=== PATIENT | female | born 2005 | race Two or more races ===

== ENCOUNTER 2025-01-10 18:40 | Emergency (ER) | payer OTHER, MEDICAID ==
[~2025-01-10] VITALS: Ht 157.5 cm; Wt 76.1 kg
[2025-01-10 19:45] LABS: Hematocrit 46.4 % (36.0-46.0); Hemoglobin 15.7 g/dL (12.2-16.2); Mean Corpuscular Hemoglobin 27.4 pg (28.0-32.0); Mean Corpuscular Volume 80.9 fL (80.0-100.0); Nucleated Red Blood Cells % 0.1 %
[2025-01-10 19:49] LABS: Chloride 104 mmol/L (98-107); Potassium 4.4 mmol/L (3.5-5.1); Sodium 139 mmol/L (136-145)
[2025-01-10 19:50] LABS: Anion Gap 9 (5-15); Calcium 10.0 mg/dL (8.7-10.4); Carbon Dioxide 26 mmol/L (20-31)
--- NOTE | 2025-01-10 19:52 | ED.PDOC ---
GI ASSESSMENT HPI Comments This is a 19 year old female presenting to the ED with chief complaint of abdominal pain. Patient reports that she has been experiencing epigastric abdominal pain with associated nausea and vomiting since last night. Patient relays that her pain was initially a 10/10, but is now a 5/10. Patient denies any diarrhea, fever, chills, chest pain, SOB, hematemesis, or dysuria. Chief Complaint: Abdominal Pain Time Seen by MD: 19:50 Reviewed Notes: Nurses Notes, Medications, Allergies Home Meds Active Scripts Ondansetron Odt 4MG Tab (ZOFRAN PO) 4 Mg Tb, 4 MG PO Q8HP PRN for 7 Days, #21 TAB ODT TAB-DISSOLVE IN MOUTH, THEN SWALLOW Prov:DIANA AHN MD 01/10/25 Pantoprazole Sodium Sesquihydr (Protonix) 40 Mg Tab, 40 MG PO DAILY, #30 TAB Prov:DIANA AHN MD 01/10/25 Information Source: Patient Mode of Arrival: Ambulatory Timing: Days Duration: Since onset Prehospital treatment: None Quality: Aching Vomitus: Watery Stool: Normal Severity: Moderate Recent: None Recent Hx of: None Pain Location: Epigastric Modifying Factors: Nothing Associated sign and symptoms: Nausea, Vomiting, Abdominal Pain Past Medical History PAST MEDICAL HISTORY: Asthma Surgical History: Denies all surgeries HEALTH NAVIGATOR History: Denies all HEALTH NAVIGATOR Hx Family History Family History: Reviewed,noncontributory to illness Social History Smoker: Non-Smoker Alcohol: Denies ETOH Use Drugs: Denies Drug Use Lives In: Home Constitutional: denies: chills, diaphoresis, fatigue, fever, malaise, sweats, weakness, others EENTM: denies: blurred vision, double vision, ear bleeding, ear discharge, ear drainage, ear pain, ear ringing, eye pain, eye redness, hearing loss, mouth pain, mouth swelling, nasal discharge, nose bleeding, nose congestion, nose pain, photophobia, tearing, throat pain, throat swelling, voice changes, others Respiratory: denies: cough, hemoptysis, orthopnea, SOB at rest, shortness of breath, SOB with excertion, stridor, wheezing, others Cardiovascular: denies: chest pain, dizzy spells, diaphoresis, Dyspnea on exertion, edema, irregular heart beat, left arm pain, lightheadedness, palpitations, PND, syncope, others Gastrointestinal: reports: abdominal pain, nausea, vomiting; denies: abdomen distended, blood streaked bowels, constipated, diarrhea, dysphagia, difficulty swallowing, hematemesis, melena, poor appetite, poor fluid intake, rectal bleeding, rectal pain, others Genitourinary: denies: abnormal vagina bleeding, burning, dyspareunia, dysuria, flank pain, frequency, hematuria, incontinence, pain, , vagina discharge, urgency, others Neurological: denies: dizziness, fainting, headache, left sided numbness, left sided weakness, numbness, paresthesia, pre-existing deficit, right sided numbness, right sided weakness, seizure, speech problems, tingling, tremors, weakness, others Musculoskeletal: denies: back pain, gout, joint pain, joint swelling, muscle pain, muscle stiffness, neck pain, others Integumetry: denies: bruises, change in color, change in hair/nails, dryness, laceration, lesions, lumps, rash, wounds, others Allergic/Immunocompromised: denies: Difficulty Healing, Frequent Infections, Hives, Itching, others Hematologic/Lymphatic: denies: anemia, blood clots, easy bleeding, easy bruising, swollen glands, others Endocrine: denies: excessive hunger, excessive sweating, excessive thirst, excessive urination, flushing, intolerance to cold, intolerance to heat, unexplained weight gain, unexplained weight loss, others Psychiatric: denies: anxiety, bipolar disorder, depression, hopeless, panic disorder, schizophrenia, sleepless, suicidal, others All Other Systems: Reviewed and Negative Physical Exam General Appearance: Mild Distress HEENT: Normal ENT Inspection, Pharynx Normal, TMs Normal Neck: Full Range of Motion, Non-Tender, Normal, Normal Inspection Respiratory: Chest Non-Tender, Lungs Clear, No Accessory Muscle Use, No Respiratory Distress, Normal Breath Sounds Cardiovascular: No Edema, No JVD, No Murmur, No Gallop, Normal Peripheral Pulses, Regular Rate/Rhythm Breast Exam: Deferred Gastrointestinal: Epigastric, No Organomegaly, No Pulsatile Mass, Normal Bowel Sounds, Soft, Tenderness Genitalia: Deferred Pelvic: Deferred Rectal: Deferred Extremities: No calf tenderness, Normal capillary refill, Normal inspection, Normal range of motion, Non-tender, No pedal edema Musculoskeletal : Apperance: Normal Neurologic: Alert, gis software developer II-XII nml as Tested, No Motor Deficits, Normal Affect, Normal Mood, No Sensory Deficits Cerebellar Function: Normal Reflexes: Normal Skin: Dry, Normal Color, Warm Lymphatic: No Adenopathy Was a procedure done? Was a procedure done?: No GI differential Dx Differential Diagnosis: Gastritis/PUD, Gastroenteritis, Electrolyte Imbalance X-Ray, Labs, Meds, VS Vital Signs Date Time Temp Pulse Resp B/P (MAP) Pulse Ox O2 Delivery O2 Flow Rate FiO2 01/10/25 18:42 98.8 98 18 139/85 97 98.8 Lab Test 01/10/25 19:35 Range/Units White Blood Count 15.9 H 4.4-10.8 10^3/uL Red Blood Count 5.73 H 4.0-5.20 10^6/uL Hemoglobin 15.7 12.2-16.2 g/dL Hematocrit 46.4 H 36.0-46.0 % Mean Corpuscular Volume 80.9 80.0-100.0 fL Mean Corpuscular Hemoglobin 27.4 L 28.0-32.0 pg Mean Corpuscular Hemoglobin Concent 33.8 32.0-36.0 g/dL Red Cell Distribution Width 13.4 11.8-14.3 % Platelet Count 363 140-450 10^3/uL Mean Platelet Volume 7.6 6.9-10.8 fL Neutrophils (%) (Auto) 79.1 37.0-80.0 % Lymphocytes (%) (Auto) 14.5 10.0-50.0 % Monocytes (%) (Auto) 3.9 0.0-12.0 % Eosinophils (%) (Auto) 1.7 0.0-7.0 % Basophils (%) (Auto) 0.8 0.0-2.0 % Neutrophils # (Auto) 12.5 H 1.6-8.6 10 ^3/uL Lymphocytes # (Auto) 2.3 0.4-5.4 10 ^3/uL Monocytes # (Auto) 0.6 0-1.3 10 ^3/uL Eosinophils # (Auto) 0.3 0-0.8 10 ^3/uL Basophils # (Auto) 0.1 0-0.2 10 ^3/uL Nucleated Red Blood Cells 0.1 % Sodium Level 139 136-145 mmol/L Potassium Level 4.4 3.5-5.1 mmol/L Chloride Level 104 98-107 mmol/L Carbon Dioxide Level 26 20-31 mmol/L Anion Gap 9 5-15 Blood Urea Nitrogen 7 L 9-23 mg/dL Creatinine 0.74 0.550-1.02 mg/dL Glomerular Filtration Rate Calc 119 >90 mL/min BUN/Creatinine Ratio 9.5 L 10.0-20.0 Serum Glucose 111 H 74-106 mg/dL Calcium Level 10.0 8.7-10.4 mg/dL Lipase 30 12-53 U/L Time of 1ST Reevaluation: 21:29 Reevaluation 1ST: Unchanged Patient Education/Counseling: Diagnosis, Treatment, Prognosis, Need For Follow Up Family Education/Counseling: No Family Present SEPSIS Sepsis Screen Date sepsis recognized/suspect: Jan 10, 2025 Time Sepsis recognized/suspect: 1843 Recent Procedure: No On Antibiotic Therapy: No Respiratory Rate >20: No Heart Rate >90: Yes Temp<36 C (96.8 F) or >38.3 C: No SBP <90 or MAP <65 mmHG: No New Acute Mental Status Change: No Is the patient on CPAP, BIPAP,: No Physician Orders Urinalysis (01/10/25 19:28) Gallbladder (01/10/25 19:28) Test, Urine (01/10/25 19:28) Drug Screen (01/10/25 19:28) Vital Signs Date Time Temp Pulse Resp B/P (MAP) Pulse Ox O2 Delivery O2 Flow Rate FiO2 01/10/25 18:42 98.8 98 18 139/85 97 98.8 Laboratory Tests Test 01/10/25 19:35 White Blood Count 15.9 10^3/uL (4.4-10.8) H Departure 1 Departure Time of Disposition: 21:21 Impression: Primary Impression: Acute gastritis Qualified Codes: K29.00 - Acute gastritis without bleeding Disposition: 01 HOME / SELF CARE / HOMELESS Condition: Fair e-Prescriptions Ondansetron Odt 4MG Tab (ZOFRAN PO) 4 Mg Tb 4 MG PO Q8HP PRN for 7 Days, #21 TAB ODT TAB-DISSOLVE IN MOUTH, THEN SWALLOW Prov: DIANA AHN MD 01/10/25 Pantoprazole Sodium Sesquihydr (Protonix) 40 Mg Tab 40 MG PO DAILY, #30 TAB Prov: DIANA AHN MD 01/10/25 Discharged With: Self Critical Care Note Critical Care Time?: No Stability Stability form required: No Heart Score Heart Score: Heart Score Response (Comments) Value History N/A 0 EKG N/A 0 Age N/A 0 Risk Factors N/A 0 Troponin N/A 0 Total 0 I personally scribed for DIANA AHN MD ([email or web address]) on 01/10/25 at 19:52. Electronically submitted by Anders Guaman ([email or web address]). DIANA AHN MD Jan 10, 2025 19:52
[2025-01-10 19:55] LABS: BUN/Creatinine Ratio 9.5 (10.0-20.0); Lipase 30 U/L (12-53)
[2025-01-10 19:57] LABS: Blood Urea Nitrogen 7 mg/dL (9-23); Glucose 111 mg/dL (74-106)
--- NOTE | 2025-01-10 21:18 | DVH ---
ULTRASOUND ABDOMEN, LIMITED RIGHT UPPER QUADRANT: REASON FOR EXAM: pain TECHNIQUE: Real-time sector scans in the transverse and longitudinal planes were obtained through th e right upper quadrant of the abdomen. FINDINGS: The liver is of normal size and contour. The liver parenchyma may be mildly echogenic. The re is hepatopetal flow in the portal vein. There is no intrahepatic biliary ductal dilatation. The c ommon bile duct is not seen. No gallstones or sludge are identified. There is no gallbladder wall t hickening nor pericholecystic fluid. There is no sonographic Harrison's sign. The pancreas is obscured by bowel gas. The right kidney measures 10.3 cm. No hydronephrosis or nephrolithiasis is identified. There is no evidence of right renal mass or cyst. The visualized portions of the abdominal aorta demonstrate no evidence of aneurysmal dilatation. The visualized inferior vena cava is unremarkable. There is no free fluid identified in the right upper quadrant. IMPRESSION: No gallbladder pathology identified. Possible mildly increased liver echogenicity. This may be secondary to steatosis or other diffuse hep atic process. Correlate clinically and with liver function tests.
[2025-01-10] MEDS ORDERED: PANT40TA2 PO (21:21)
[2025-01-10] MEDS ORDERED: ZOFR4T PO (21:21)
[2025-01-10 21:50] VITALS: BP 125/73; PULSE 90; RESP 18; TEMP 97.9; O2SAT 97
== END 2025-01-10 21:54 | disposition home or self-care (01) ==
LOC: ER 18:42
DX: K29.00 Acute gastritis without bleeding (principal); J45.909 Unspecified asthma, uncomplicated; Z79.899 Other long term (current) drug therapy
CPT/HCPCS: 36415; 76705; 80048; 83690; 85025